=== PATIENT | male | born 1950 | race Caucasian/White ===

== ENCOUNTER 2019-12-16 06:33 | Day surgery (SDC) | payer MEDICARE, OTHER ==
[2019-12-15 09:13] VITALS: BMI 24.3
[~2019-12-16 06:33] MED LIST: ACETAMINOPHEN TAB 500 MG TAB PO ONE; HEPARIN SODIUM,PORCINE 5,000 UNIT/ML 1 ML VIAL SQ ONE; LACTATED RINGERS 1,000 ML IV SCH; Pre Op ABX Message 1 EACH MISC MISCELLANE ONE
[2019-12-16] MEDS ORDERED: LACTATED RINGERS 1,000 ML IV ONE ×2 (06:47→09:12)
[2019-12-16] MEDS ORDERED: ONDANSETRON 4 MG/2 ML VIAL IVP ONE (06:58)
[2019-12-16] MEDS ORDERED: DEXAMETHASONE SOD PHOS (MDV) 100 MG/10 ML VIAL IVP ONE (06:59)
[2019-12-16] MEDS ORDERED: LIDOCAINE 1% (10MG/ML) FOR IV START INTRADERMA ONE (06:59)
[2019-12-16] MEDS ORDERED: KETAMINE 10 MG/ML 20 ML VIAL ONE (07:45)
[2019-12-16] MEDS ORDERED: diphenhydrAMINE 50 MG/ML 1 ML VIAL ONE (07:45)
[2019-12-16] MEDS ORDERED: PROPOFOL 10 MG/ML 20 ML VIAL IV ONE (07:45)
[2019-12-16] MEDS ORDERED: MIDAZOLAM 2 MG/2 ML VIAL ONE (07:45)
[2019-12-16] MEDS ORDERED: BUPIVACAIN-EPI 0.25%-1:200,000 30 ML VIAL SQ ONE (07:50)
[2019-12-16] MEDS ORDERED: ceFAZolin 1,000 MG VIAL IVPB ONE (07:59)
[2019-12-16 08:35] VITALS: TEMP 97.6
--- NOTE | 2019-12-16 08:36 | P.GSHP ---
History of Present Illness H&P Date: 12/16/19 Chief Complaint: Dysplastic nevus neck, right shoulder melanoma Is a 69-year-old male who was recently diagnosed with a dysplastic nevus of the right posterior neck and a right shoulder melanoma. Patient had his biopsy performed at Dr. White's office. He presents today for wide local excision. Past Medical History Past Medical History: Cancer, Prostate Disorder Additional Past Medical History / Comment(s): MELANOMA. KIDNEY STONES History of Any Multi-Drug Resistant Organisms: None Reported Additional Past Surgical History / Comment(s): COLONOSCOPY. SX FOR KIDNEY STONES Past Anesthesia/Blood Transfusion Reactions: No Reported Reaction Smoking Status: Never smoker - Past Family History Father Family Medical History: Cancer Mother Family Medical History: Cancer Medications and Allergies Home Medications Medication Instructions Recorded Confirmed Type Tamsulosin HCl [Flomax] 0.4 mg PO HS 12/15/19 12/15/19 History Allergies Allergy/AdvReac Type Severity Reaction Status Date / Time No Known Allergies Allergy Verified 12/15/19 09:06 Surgical - Exam Vital Signs Temp Pulse Resp BP Pulse Ox 97.9 F 79 18 144/81 98 12/16/19 06:45 12/16/19 06:45 12/16/19 06:45 12/16/19 06:45 12/16/19 06:45 - General well developed, well nourished, no distress - Eyes PERRL - ENT normal pinna - Neck no masses - Respiratory normal expansion - Cardiovascular Rhythm: regular - Abdomen Abdomen: soft, non tender - Integumentary 8 mm shave biopsy of right posterior neck dysplastic nevus, 1 cm area of biopsy of right shoulder superficial spreading melanoma Assessment and Plan Assessment: Dysplastic nevus right posterior neck, superficial spreading melanoma right shoulder. We'll perform wide local excision.
--- NOTE | 2019-12-16 08:41 | P.OP ---
Date of Procedure: 12/16/19 Preoperative Diagnosis: Dysplastic nevus right posterior neck Superficial spreading melanoma of right posterior shoulder Postoperative Diagnosis: Same Procedure(s) Performed: Wide local excision of right posterior neck dysplastic nevi Wide local excision of superficial spreading melanoma right posterior shoulder Anesthesia: MAC, local Surgeon: Chintan Valdivia Estimated Blood Loss (ml): 5 Pathology: other (Right neck discussing the risks, right shoulder melanoma) Condition: stable Disposition: PACU Description of Procedure: Patient's placed on the operative table in the lateral position. His neck and shoulder were prepped and draped usual fashion. The air was anesthetized 1% local Xylocaine. Using a 15 blade elliptical skin incision was made around the dysplastic nevi the neck. The skin was incised and electrocautery the subcu tissue divided. The specimens of pathology. The skin lesion measured approximately 2.5 x 1 cm diameter skin was closed interrupted 3-0 Monocryl suture. Next, the shoulder area was excised. Local skin incision made around the melanoma site and then using left cautery the subcu tissues were divided. The skin was closed interrupted 3-0 Monocryl suture. The specimen measured approximately 3 cm x 1.5 cm Dermabond dressing was applied. Patient top procedure well and was sent to recovery room stable condition.
[2019-12-16 09:17] VITALS: RESP 18
[2019-12-16 09:36] VITALS: BP 132/71; PULSE 56
== END 2019-12-16 09:50 | disposition home or self-care (01) ==
LOC: OR 06:33
PROVIDERS: ATTEND Surgery
DX: L57.0 Actinic keratosis (principal); L57.8 Other skin changes due to chronic exposure to nonionizing radiation; L81.4 Other melanin hyperpigmentation; L90.5 Scar conditions and fibrosis of skin; N42.9 Disorder of prostate, unspecified; Z85.820 Personal history of malignant melanoma of skin; Z87.442 Personal history of urinary calculi; Z80.9 Family history of malignant neoplasm, unspecified; Z98.890 Other specified postprocedural states; Z79.899 Other long term (current) drug therapy; Z79.82 Long term (current) use of aspirin
CPT/HCPCS: 88305; 88342; 88341; 11424; 11406; J2250; J1200; J1644; J2405; J0690; J1100; J2704

== ENCOUNTER 2021-09-08 11:29 | Emergency (ER) | payer MEDICARE, OTHER ==
[2021-09-08 11:47] VITALS: BP 125/86; PULSE 67; RESP 18; TEMP 98
--- NOTE | 2021-09-08 12:10 | ED ---
Fall HPI - General Chief Complaint: Fall Stated Complaint: Fall/Hit Head Time Seen by Provider: 09/08/21 11:49 Source: patient Mode of arrival: ambulatory - History of Present Illness Initial Comments: This 71-year-old male presents to the emergency department after a fall at 10 AM. Patient states he was walking outside when he slipped on a piece of ice, falling backward and hitting his head. Patient states he went to his primary care provider who told him to come here. He might need a scan. Patient denies any confusion, back pain, neck pain, head pain. Patient denies any loss of consciousness, vomiting, nausea, chest pain, shortness of breath, abdominal pain, headache. He states he does take aspirin 81 daily but is not on any other blood thinners. - Related Data Home Medications Medication Instructions Recorded Confirmed Tamsulosin HCl [Flomax] 0.4 mg PO HS 12/15/19 09/08/21 Allergies Allergy/AdvReac Type Severity Reaction Status Date / Time No Known Allergies Allergy Verified 09/08/21 12:49 Review of Systems ROS Statement: Those systems with pertinent positive or pertinent negative responses have been documented in the HPI. ROS Other: All systems not noted in ROS Statement are negative. Past Medical History Past Medical History: Cancer, Prostate Disorder Additional Past Medical History / Comment(s): MELANOMA. KIDNEY STONES History of Any Multi-Drug Resistant Organisms: None Reported Additional Past Surgical History / Comment(s): skin cancer removal COLONOSCOPY. SX FOR KIDNEY STONES Past Anesthesia/Blood Transfusion Reactions: No Reported Reaction Past Psychological History: No Psychological Hx Reported Smoking Status: Never smoker Past Alcohol Use History: Occasional Past Drug Use History: None Reported - Past Family History Father Family Medical History: Cancer Mother Family Medical History: Cancer General Exam Limitations: no limitations General appearance: alert, in no apparent distress Head exam: Present: other (Round hematoma on crown of head 5cm by 5cm and slightly raised. No pain to palpation) Eye exam: Present: normal appearance, PERRL, EOMI. Absent: conjunctival injection, nystagmus, periorbital swelling, periorbital tenderness ENT exam: Present: normal exam, mucous membranes moist, normal external ear exam Neck exam: Present: normal inspection, full ROM. Absent: tenderness Respiratory exam: Present: normal lung sounds bilaterally. Absent: respiratory distress, wheezes, rales, rhonchi, stridor Cardiovascular Exam: Present: regular rate, normal rhythm, normal heart sounds. Absent: systolic murmur, diastolic murmur, rubs, gallop, clicks GI/Abdominal exam: Present: soft, normal bowel sounds. Absent: distended, tenderness, guarding, rebound, rigid Extremities exam: Present: normal inspection, full ROM, normal capillary refill. Absent: tenderness, pedal edema, joint swelling, calf tenderness Back exam: Present: normal inspection, full ROM. Absent: tenderness, CVA tenderness (R), CVA tenderness (L), muscle spasm, paraspinal tenderness, vertebral tenderness Neurological exam: Present: alert, oriented X3, CN II-XII intact Psychiatric exam: Present: normal affect, normal mood Skin exam: Present: warm, dry, intact, normal color. Absent: rash Course Vital Signs 09/08/21 11:43 Temperature 98 F Pulse Rate 67 Respiratory 18 Rate Blood Pressure 125/86 O2 Sat by Pulse 99 Oximetry Medical Decision Making - Medical Decision Making This 71-year-old male presents to the emergency department after slipping and falling on ice, hitting his head. CT brain and C-spine Posterior-superior scalp contusion. No acute intracranial abnormality seen. No acute fracture of the cervical spine. Moderate to severe spondylotic changes C5 to C7 levels. Degenerative grade 1 spondylolisthesis C3-C4 and C4-C5. Patient sent home to follow-up with primary care provider in next 1-2 days. Patient agreeable to plan. Strict return precautions given. Patient sent home in stable condition. Disposition Clinical Impression: Fall due to ice or snow Disposition: HOME SELF-CARE Condition: Stable Instructions (If sedation given, give patient instructions): Fall Prevention for Older Adults (ED) Additional Instructions: Please return to the emergency department with any concerning, new, worsening symptoms. Please follow up with primary care provider next 1-2 days. Is patient prescribed a controlled substance at d/c from ED?: No Referrals: Medhat Duran MD [Primary Care Provider] - 1-2 days Time of Disposition: 13:10
--- NOTE | 2021-09-08 12:59 | CT ---
EXAMINATION TYPE: CT brain james wo con DATE OF EXAM: 09/08/2021 COMPARISON: None HISTORY: 71-year-old male with pain after Fall CT DLP: 1356 mGycm Automated exposure control for dose reduction was used. Technique: Examination of the head was done in axial plane without intravenous contrast. Coronal and sagittal reconstructions performed. CT of the cervical spine was obtained in axial plane without intravenous injection of contrast mater ial. Coronal and sagittal reformatted images were obtained from the axial views for evaluation of f ractures, spinal alignment and canal. FINDINGS: Head: There is no evidence of acute intracranial hemorrhage, acute ischemic changes, mass, mass-effect, or extra-axial fluid collection. There is no effacement of cerebral sulci or basal subarachnoid cister ns. There is no hydrocephalus. There is no midline shift. Gallo-white matter distinction is preserv ed. Incidental partially empty sella. Posterior superior scalp hematoma. No underlying calvarial fracture. Trace mucosal thickening right ethmoid air cells and bilateral maxillary sinuses. Cervical spine: No craniocervical junction abnormality, predental space widening, or prevertebral soft tissue swellin g. Degenerative change of the C1 dens articulation. Moderate to severe disc/endplate degenerative change C5-C7 levels. Disc osteophyte complex formation may contribute to mild narrowing of the spinal canal such as a C3-C4, C5-C6, C6/C7. Multilevel hypertrophic facet and uncovertebral joint arthropathy. Degenerative grade 1 retrolisthesis C3-C4 and grade 1 anterolisthesis C4-C5. Moderate to severe bilateral neuroforaminal narrowing at C5-C6 and C6-C7. No acute fracture of the cervical spine. Sagittal and coronal reformatted images confirm above findings. COMBINED IMPRESSION: 1. Posterior superior scalp contusion. No acute intracranial abnormality seen. 2. No acute fracture of the cervical spine. Moderate to severe spondylotic changes C5-C7 levels. Dege nerative grade 1 spondylolisthesis C3-C4 and C4-C5.
== END 2021-09-08 13:40 | disposition home or self-care (01) ==
LOC: EC 11:29
DX: Z04.3 Encounter for examination and observation following other accident (principal); Z87.442 Personal history of urinary calculi
CPT/HCPCS: 70450; 72125; 99284